=== PATIENT | female | born 1995 | race Caucasian/White ===

== ENCOUNTER 2021-02-09 21:44 | Inpatient (IN) | payer BC ==
[~2021-02-09] VITALS: Ht 170.2 cm; Wt 102.1 kg
[2021-02-09] MEDS ORDERED: ACETAMINOPHEN 325 MG TAB ONE (22:16)
[2021-02-09 22:26] LABS: HEMATOCRIT 34.9 % (34.2-44.1); HEMOGLOBIN 10.8 g/dL (12.0-16.0); LYMPHOCYTES # (AUTO) 0.5 (1.0-3.2); LYMPHOCYTES % 14.2 % (18.0-39.1); MEAN CORPUSCULAR HEMOGLOBIN 27.3 pg (28-32); MEAN CORPUSCULAR HGB CONC 30.9 g/dL (31-35); MEAN CORPUSCULAR VOLUME 88.4 fL (81-99); MONOCYTES # (AUTO) 0.1 (0.2-0.8); MONOCYTES % 2.4 % (4.4-11.3); NEUTROPHILS # (AUTO) 3.1 (2.1-6.9); NEUTROPHILS % 82.9 % (38.7-80.0); PLATELET COUNT 108 x10e3/uL (140-360); RED BLOOD COUNT 3.95 x10e6/uL (3.6-5.1); RED CELL DISTRIBUTION WIDTH 13.3 % (11.7-14.4)
[2021-02-09] MEDS ORDERED: CEFTRIAXONE 2 GM in SODIUM CHLORIDE 0.9% 100 ML IV ONE (22:30)
[2021-02-09] MEDS ORDERED: ACETAMINOPHEN 325 MG TAB PO ONE (22:30)
[2021-02-09] MEDS ORDERED: DEXAMETHASONE SOD PHOS 10 MG/1 ML VIAL IV ONE (22:30)
[2021-02-09 22:40] LABS: ALBUMIN 3.5 g/dL (3.5-5.0); ALBUMIN/GLOBULIN RATIO 1.1 (0.8-2.0); ANION GAP 14.7 mmol/L (8-16); CALCIUM 7.4 mg/dL (8.4-10.2); CREATININE, SERUM 0.76 mg/dL (0.57-1.11); POTASSIUM 3.7 mmol/L (3.5-5.1)
[2021-02-09 22:47] LABS: CREATINE KINASE MB 4.5 ng/mL (0-5.0)
[2021-02-09] MEDS ORDERED: SODIUM CHLORIDE 0.9% 1000ML 1,000 ML IV ONE (23:15)
[2021-02-10] MEDS ORDERED: ACETAMINOPHEN 650 MG SUPP PR PRN
[2021-02-10] MEDS: SODIUM CHLORIDE 0.9% 1000ML 1,000 ML IV SCH ×3 (02:26→20:05)
[2021-02-10 05:50] VITALS: BP 111/71
[2021-02-10 07:37] LABS: HEMATOCRIT 33.6 % (34.2-44.1); HEMOGLOBIN 10.2 g/dL (12.0-16.0); LYMPHOCYTES # (AUTO) 0.4 (1.0-3.2); LYMPHOCYTES % 11.2 % (18.0-39.1); MEAN CORPUSCULAR HEMOGLOBIN 27.1 pg (28-32); MEAN CORPUSCULAR HGB CONC 30.4 g/dL (31-35); MEAN CORPUSCULAR VOLUME 89.4 fL (81-99); MONOCYTES # (AUTO) 0.1 (0.2-0.8); MONOCYTES % 1.9 % (4.4-11.3); NEUTROPHILS # (AUTO) 2.8 (2.1-6.9); NEUTROPHILS % 86.3 % (38.7-80.0); PLATELET COUNT 106 x10e3/uL (140-360); RED BLOOD COUNT 3.76 x10e6/uL (3.6-5.1); RED CELL DISTRIBUTION WIDTH 13.4 % (11.7-14.4)
[2021-02-10 07:59] LABS: ALBUMIN 3.3 g/dL (3.5-5.0); ALBUMIN/GLOBULIN RATIO 1.1 (0.8-2.0); ANION GAP 14.8 mmol/L (8-16); CALCIUM 7.5 mg/dL (8.4-10.2); CREATININE, SERUM 0.67 mg/dL (0.57-1.11); POTASSIUM 3.8 mmol/L (3.5-5.1)
[2021-02-10] MEDS ORDERED: PRENATAL VITAM1 EAC6 PO (08:13)
[2021-02-10 08:34] VITALS: BP_SYST 123; BP_SYST 135; BP_DIAS 64; BP_DIAS 80
[2021-02-10] MEDS ORDERED: REMDESIVIR 200MG 200 MG IV ONE (09:00)
[2021-02-10] MEDS: CEFTRIAXONE 2 GM in SODIUM CHLORIDE 0.9% 100 ML IV SCH (09:08)
[2021-02-10] MEDS: ASCORBIC ACID 500 MG TAB PO SCH ×2 (09:09→15:37)
[2021-02-10] MEDS: ENOXAPARIN INJ 80 MG/0.8 ML SYR SC SCH ×2 (09:09→15:37)
[2021-02-10] MEDS: ZINC SULFATE 220 MG CAP PO SCH (09:09)
[2021-02-10] MEDS ORDERED: FLUTICASONE PROPIONATE NASAL SPRAY NS PRN (11:30)
[2021-02-10 11:50] VITALS: BP 109/75
[2021-02-10 16:00] VITALS: BP 116/67
[2021-02-10 20:14] VITALS: BP 124/81
[2021-02-10 22:11] VITALS: BP 124/81
[2021-02-11] VITALS (7 sets, daily range): BP systolic 108–124; BP diastolic 68–83
[2021-02-11] MEDS: SODIUM CHLORIDE 0.9% 1000ML 1,000 ML IV SCH ×3 (04:19→23:54)
[2021-02-11 06:23] LABS: HEMATOCRIT 30.7 % (34.2-44.1); HEMOGLOBIN 9.6 g/dL (12.0-16.0); LYMPHOCYTES # (AUTO) 0.6 (1.0-3.2); LYMPHOCYTES % 16.6 % (18.0-39.1); MEAN CORPUSCULAR HEMOGLOBIN 27.4 pg (28-32); MEAN CORPUSCULAR HGB CONC 31.3 g/dL (31-35); MEAN CORPUSCULAR VOLUME 87.7 fL (81-99); MONOCYTES # (AUTO) 0.2 (0.2-0.8); MONOCYTES % 5.6 % (4.4-11.3); NEUTROPHILS # (AUTO) 2.9 (2.1-6.9); NEUTROPHILS % 77.3 % (38.7-80.0); PLATELET COUNT 115 x10e3/uL (140-360); RED CELL DISTRIBUTION WIDTH 13.6 % (11.7-14.4)
[2021-02-11 06:48] LABS: ALBUMIN 2.7 g/dL (3.5-5.0); ALBUMIN/GLOBULIN RATIO 0.8 (0.8-2.0); ANION GAP 14.6 mmol/L (8-16); CALCIUM 7.7 mg/dL (8.4-10.2); CREATININE, SERUM 0.6 mg/dL (0.57-1.11); POTASSIUM 3.6 mmol/L (3.5-5.1)
[2021-02-11] MEDS: ZINC SULFATE 220 MG CAP PO SCH (08:17)
[2021-02-11] MEDS: ASCORBIC ACID 500 MG TAB PO SCH ×2 (08:17→17:29)
[2021-02-11] MEDS: PANTOPRAZOLE SOD 40 MG TABEC PO SCH (08:17)
[2021-02-11] MEDS: ENOXAPARIN INJ 80 MG/0.8 ML SYR SC SCH ×2 (08:18→17:29)
[2021-02-11] MEDS ORDERED: REMDESIVIR 100MG 100 MG IV SCH ×2 (09:00→14:00)
[2021-02-11] MEDS: CEFTRIAXONE 2 GM in SODIUM CHLORIDE 0.9% 100 ML IV SCH (11:43)
[2021-02-11] MEDS ORDERED: GUAIFENESIN 600MG/DEXTROMETHORPHAN 30MG TABSR PO PRN (12:15)
[2021-02-11] MEDS: DEXAMETHASONE SOD PHOS INJ 4 MG/ML VIAL IV SCH (12:45)
[2021-02-11] MEDS ORDERED: REMDESIVIR 100MG 100 MG in SODIUM CHLORIDE 0.9% 100 ML IV SCH (14:00)
[2021-02-11] MEDS ORDERED: MORPHINE SULFATE INJ 2 MG/ML SYR IV PRN (20:30)
[2021-02-12 01:04] VITALS: BP 126/80
[2021-02-12 01:57] VITALS: BP 126/80
[2021-02-12] MEDS ORDERED: SODIUM CHLORIDE 0.9% 50ML 0 ML ONE (03:30)
[2021-02-12] MEDS ORDERED: IOPAMIDOL 370 MG/ML 200 ML INFUS..BTL INJ ONE ×2 (03:30→13:22)
[2021-02-12 05:42] VITALS: BP 128/77
[2021-02-12 06:19] LABS: ALBUMIN 2.8 g/dL (3.5-5.0); ALBUMIN/GLOBULIN RATIO 0.9 (0.8-2.0); ANION GAP 14.5 mmol/L (8-16); CALCIUM 7.6 mg/dL (8.4-10.2); CREATININE, SERUM 0.6 mg/dL (0.57-1.11); POTASSIUM 3.5 mmol/L (3.5-5.1)
[2021-02-12 09:00] VITALS: BP 130/79
[2021-02-12] MEDS: PANTOPRAZOLE SOD 40 MG TABEC PO SCH (09:48)
[2021-02-12] MEDS: ZINC SULFATE 220 MG CAP PO SCH (09:48)
[2021-02-12] MEDS: CEFTRIAXONE 2 GM in SODIUM CHLORIDE 0.9% 100 ML IV SCH (09:48)
[2021-02-12] MEDS: ASCORBIC ACID 500 MG TAB PO SCH ×2 (09:48→17:03)
[2021-02-12] MEDS: ENOXAPARIN INJ 80 MG/0.8 ML SYR SC SCH ×2 (09:48→17:03)
[2021-02-12] MEDS: DEXAMETHASONE SOD PHOS INJ 4 MG/ML VIAL IV SCH (09:48)
[2021-02-12] MEDS: SODIUM CHLORIDE 0.9% 1000ML 1,000 ML IV SCH (11:15)
[2021-02-12] MEDS ORDERED: DIPHENHYDRAMINE HCL 25 MG CAP PO PRN (12:15)
[2021-02-12] MEDS ORDERED: SODIUM CHLORIDE 0.9% 50ML 50 ML ONE (13:22)
[2021-02-12] MEDS ORDERED: DIPHENHYDRAMINE HCL INJ 50 MG/ML VIAL ONE (13:28)
[2021-02-12] MEDS ORDERED: DIPHENHYDRAMINE HCL INJ 50 MG/ML VIAL IV ONE (14:00)
[2021-02-12 18:27] VITALS: BP 130/79
[2021-02-12 20:00] VITALS: BP_SYST 130; BP_DIAS 74; BP_DIAS 79
[2021-02-12] MEDS ORDERED: ACETAMINOPHEN/CODEINE 300MG - 30MG TAB PO PRN (21:30)
[2021-02-13] VITALS (7 sets, daily range): BP systolic 130–140; BP diastolic 77–91
[2021-02-13] MEDS: SODIUM CHLORIDE 0.9% 1000ML 1,000 ML IV SCH ×2 (02:48→08:36)
[2021-02-13 06:44] LABS: BASOPHILS % 0.2 % (0.0-1.0); HEMATOCRIT 31.7 % (34.2-44.1); LYMPHOCYTES # (AUTO) 0.8 (1.0-3.2); LYMPHOCYTES % 17.9 % (18.0-39.1); MEAN CORPUSCULAR HEMOGLOBIN 27.5 pg (28-32); MEAN CORPUSCULAR HGB CONC 31.5 g/dL (31-35); MEAN CORPUSCULAR VOLUME 87.3 fL (81-99); MONOCYTES # (AUTO) 0.3 (0.2-0.8); MONOCYTES % 7.1 % (4.4-11.3); NEUTROPHILS # (AUTO) 3.2 (2.1-6.9); NEUTROPHILS % 70.6 % (38.7-80.0); PLATELET COUNT 161 x10e3/uL (140-360); RED BLOOD COUNT 3.63 x10e6/uL (3.6-5.1); RED CELL DISTRIBUTION WIDTH 13.2 % (11.7-14.4)
[2021-02-13 07:04] LABS: ALBUMIN 2.8 g/dL (3.5-5.0); ALBUMIN/GLOBULIN RATIO 0.9 (0.8-2.0); ANION GAP 14.2 mmol/L (8-16); CALCIUM 7.6 mg/dL (8.4-10.2); CREATININE, SERUM 0.66 mg/dL (0.57-1.11); POTASSIUM 3.2 mmol/L (3.5-5.1)
[2021-02-13] MEDS: ASCORBIC ACID 500 MG TAB PO SCH (08:36)
[2021-02-13] MEDS: DEXAMETHASONE SOD PHOS INJ 4 MG/ML VIAL IV SCH (08:36)
[2021-02-13] MEDS: PANTOPRAZOLE SOD 40 MG TABEC PO SCH (08:36)
[2021-02-13] MEDS: ENOXAPARIN INJ 80 MG/0.8 ML SYR SC SCH (08:37)
[2021-02-13] MEDS: ZINC SULFATE 220 MG CAP PO SCH (08:38)
[2021-02-13] MEDS ORDERED: POTASSIUM CHLORIDE 10MEQ EA PO NR (11:00)
[2021-02-13] MEDS ORDERED: DECADRON4 M1 PO (12:57)
[2021-02-16] MEDS ORDERED: DEXAMETHASONE SOD PHOS 10 MG/1 ML VIAL IV SCH (09:00)
== END 2021-02-13 15:01 | disposition home or self-care (01) | DRG 177 ==
LOC: ER 22:25 → ERHOLD 02-10 01:12 → MED/SURG3 02-10 04:13
PROVIDERS: ADMIT Internal Medicine; ATTEND Internal Medicine
PROC: 3E0333Z Introduction of Anti-inflammatory into Peripheral Vein, Percutaneous Approach (ICD-10-PCS; 2021-02-09)
PROC: XW033E5 Introduction of Remdesivir Anti-infective into Peripheral Vein, Percutaneous Approach, New Technology Group 5 (ICD-10-PCS; principal; 2021-02-10)
DX: U07.1 COVID-19 (principal); J12.82 Pneumonia due to coronavirus disease 2019; J96.01 Acute respiratory failure with hypoxia; M62.82 Rhabdomyolysis; D61.818 Other pancytopenia; R09.02 Hypoxemia; K21.9 Gastro-esophageal reflux disease without esophagitis; G47.33 Obstructive sleep apnea (adult) (pediatric); K76.0 Fatty (change of) liver, not elsewhere classified; K58.9 Irritable bowel syndrome, unspecified; E66.9 Obesity, unspecified; Z68.35 Body mass index [BMI] 35.0-35.9, adult; E03.9 Hypothyroidism, unspecified; E11.9 Type 2 diabetes mellitus without complications; I10 Essential (primary) hypertension; H54.61 Unqualified visual loss, right eye, normal vision left eye; Z83.3 Family history of diabetes mellitus; Z84.89 Family history of other specified conditions; T50.995A Adverse effect of other drugs, medicaments and biological substances, initial encounter; Y92.230 Patient room in hospital as the place of occurrence of the external cause
CPT/HCPCS: 36415; 71045; 71260; 80053; 81025; 82550; 82553; 84443; 84484; 85025; 87040; 93005; 93306; 99284; J0456; J0696; J1100; J1200; J1650; J2270; J7030; J7050; Q9967; U0002